=== PATIENT | female | born 1970 | race Caucasian/White ===

== ENCOUNTER 2017-11-14 19:22 | Emergency (ER) | payer MEDICAID ==
[2017-11-14 23:01] LABS: URINE BLOOD (Dip) POC Negative (NEGATIVE); URINE GLUCOSE (Dip) POC Negative (NEGATIVE); URINE KETONES (Dip) POC 1+ (NEGATIVE); URINE LEUKOCYTE EST (Dip) POC 2+ (NEGATIVE); URINE NITRITE (Dip) POC Negative (NEGATIVE); URINE TOTAL PROTEIN POC Negative (NEGATIVE)
[2017-11-14] MEDS: IBUPROFEN 600 MG TAB PO (23:02)
== END 2017-11-15 01:48 | disposition home or self-care (01) ==
LOC: FTE 11-15 01:48
DX: N64.4 Mastodynia (principal)
CPT/HCPCS: 76642; 81003; 81025; 99284-25